=== PATIENT | female | born 1965 | race American Indian/Alaskan Native ===

== ENCOUNTER 2016-10-12 23:02 | Emergency (ER) | payer MEDICARE ==
[2016-10-13] MEDS ORDERED: TORADOL IM ONE (05:36)
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
[2016-10-13 05:43] VITALS: BP 155/80
[2016-10-13] MEDS ORDERED: MOTRIN PO ONE (05:53)
--- NOTE | 2016-10-13 09:21 | XRay Report ---
LEFT TIBIA AND FIBULA RADIOGRAPHS INDICATION: Status post fall. COMPARISON: None similar. FINDINGS: AP and lateral views demonstrate intact left tibia, fibula and intact adjacent included knee and ankle articulations. Mild superior and inferior patellar articular pole spurring. Superior patellar enthesophyte. Minimal suprapatellar effusion not entirely excluded. Mild diffuse ankle soft tissue swelling also possible. CONCLUSION: No acute left tibia or fibula radiographic abnormality with mild left knee degenerative changes and possible ankle soft tissue swelling, as described. Please correlate. Thank you for the opportunity to participate in this patient's care.
== END 2016-10-13 06:11 | disposition home or self-care (01) ==
LOC: ED 23:02
DX: M79.662 Pain in left lower leg (principal); I10 Essential (primary) hypertension; E78.00 Pure hypercholesterolemia, unspecified; F17.200 Nicotine dependence, unspecified, uncomplicated; G89.29 Other chronic pain
CPT/HCPCS: J1885

== ENCOUNTER 2017-05-30 00:51 | Emergency (ER) | payer MEDICARE ==
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
[2017-05-30 07:49] VITALS: BP 150/84
--- NOTE | 2017-05-30 16:13 | XRay Report ---
FINAL REPORT PROCEDURE: XR SPINE CERVICAL 2-3V TECHNIQUE: Cervical spine radiographs, AP, lateral, and open-mouth odontoid views. CPT 23862 HISTORY: neck pain COMPARISON: No prior studies are available for comparison. FINDINGS: Prevertebral soft tissues: Normal . Alignment: There is loss of cervical lordosis.. Vertebral body heights/Disk spaces: Mild to moderate narrowing of the intervertebral disc spaces is noted C4-5-C6-7 with mild degree marginal osteophyte formation posteriorly and moderate degree anterior osteophyte formation.. Fracture(s): None . Facets: Normal . Bone mineralization: Normal . IMPRESSION: Straightening of the cervical spine is most likely secondary to spasm or positioning. Cervical spondylosis as described above.
== END 2017-05-30 07:48 | disposition home or self-care (01) ==
LOC: ED 00:51
DX: M47.22 Other spondylosis with radiculopathy, cervical region (principal); I10 Essential (primary) hypertension; M62.838 Other muscle spasm; F17.200 Nicotine dependence, unspecified, uncomplicated; F32.9 Major depressive disorder, single episode, unspecified; F41.9 Anxiety disorder, unspecified; E78.00 Pure hypercholesterolemia, unspecified; Z90.710 Acquired absence of both cervix and uterus
CPT/HCPCS: 72040; 99283

== ENCOUNTER 2018-01-02 11:52 | Emergency (ER) | payer MEDICARE ==
[2018-01-02 11:57] VITALS: BP 131/80
[2018-01-02] MEDS ORDERED: DELTASONE PO ONE (12:15)
[2018-01-02] MEDS ORDERED: TORADOL IM ONE (12:15)
--- NOTE | 2018-01-02 12:34 | Emergency Department Report ---
ED Back Pain/Injury HPI - General Chief Complaint: Back Pain/Injury Stated Complaint: BACK AND LEFT SIDE PAIN Time Seen by Provider: 01/02/18 12:15 Source: patient Limitations: No Limitations - History of Present Illness Initial Comments: This is a 52-year-old female nontoxic, well nourished in appearance, no acute signs of distress presents to the ED with c/o of acute on chronic lower back pain. Patient stated that the past 2 days he was moving and developed this pain. Patient states has history of sciatica nerve pain which is similar symptoms as today. Patient states that pain radiates through to his left lower extremity. Patient denies any trauma. Denies any bladder or bowel instability. Patient denies any urinary symptoms. Denies any fever, chills, nausea, vomiting, headache, stiff neck, chest pain or shortness of breath. Patient denies any numbness or tingling. Denies any allergies. PMh includes HTN. MD Complaint: back pain -: days(s) (2) Similar Symptoms Previously: Yes Place: home Radiation: left leg Severity: mild Severity scale (0 -10): 8 Quality: aching Consistency: constant Improves With: immobilization, supine, sitting upright Worsens With: movement, walking Context: while lifting, turning/twisting Associated Symptoms: denies other symptoms. denies: confusion, weakness, chest pain, numbness, difficulty walking, cough, difficulty urinating, diaphoresis, incontinence, fever/chills, constipation, headaches, abdominal pain, loss of appetite, malaise, nausea/vomiting, rash, seizure, shortness of breath, syncope - Related Data Home Medications Medication Instructions Recorded Confirmed Last Taken Atenolol [Tenormin] 50 mg PO DAILY 02/24/13 02/24/13 02/24/13 50mg Ciprofloxacin HCl [Cipro] 500 mg PO BID 02/24/13 02/24/13 02/24/13 500mg Citalopram [Celexa] 20 mg PO QDAY 02/24/13 02/24/13 02/24/13 20mg Omeprazole [Prilosec] 20 mg PO QDAY 02/24/13 02/24/13 02/24/13 20mg Previous Rx's Medication Instructions Recorded Last Taken Type Ibuprofen [Motrin] 600 mg PO Q8H #14 tablet 02/25/13 Unknown Rx Cyclobenzaprine [Flexeril] 10 mg PO TID PRN #15 tablet 05/17/15 Unknown Rx traMADol [Ultram] 50 mg PO Q6HR PRN #15 tablet 05/17/15 Unknown Rx Ketorolac [Toradol] 10 mg PO Q6H PRN #20 tablet 10/13/16 Unknown Rx tiZANidine [Zanaflex] 4 mg PO TID 7 Days #30 tablet 05/30/17 Unknown Rx traMADol [Ultram 50 MG tab] 50 mg PO Q6HR PRN 7 Days #28 tablet 05/30/17 Unknown Rx Cyclobenzaprine [Flexeril] 10 mg PO BID PRN #14 tablet 01/02/18 Unknown Rx Ibuprofen [Motrin] 600 mg PO Q8H PRN #30 tablet 01/02/18 Unknown Rx Allergies Allergy/AdvReac Type Severity Reaction Status Date / Time No Known Allergies Allergy Unverified 02/24/13 19:32 ED Review of Systems ROS: Stated complaint: BACK AND LEFT SIDE PAIN Other details as noted in HPI Constitutional: denies: chills, fever Eyes: denies: eye pain, eye discharge, vision change ENT: denies: ear pain, throat pain Respiratory: denies: cough, shortness of breath, wheezing Cardiovascular: denies: chest pain, palpitations Endocrine: no symptoms reported Gastrointestinal: denies: abdominal pain, nausea, diarrhea Genitourinary: denies: urgency, dysuria, discharge Musculoskeletal: back pain. denies: joint swelling, arthralgia Skin: denies: rash, lesions Neurological: denies: headache, weakness, paresthesias Psychiatric: denies: anxiety, depression Hematological/Lymphatic: denies: easy bleeding, easy bruising ED Past Medical Hx - Past Medical History Hx Hypertension: Yes Hx Psychiatric Treatment: Yes (anxiety, depression) Additional medical history: Elevated Cholesterol, Chronic Back Pain - Surgical History Additional Surgical History: Hysterectomy - Social History Smoking Status: Current Every Day Smoker Substance Use Type: None - Medications Home Medications: Home Medications Medication Instructions Recorded Confirmed Last Taken Type Atenolol [Tenormin] 50 mg PO DAILY 02/24/13 02/24/13 02/24/13 History 50mg Ciprofloxacin HCl [Cipro] 500 mg PO BID 02/24/13 02/24/13 02/24/13 History 500mg Citalopram [Celexa] 20 mg PO QDAY 02/24/13 02/24/13 02/24/13 History 20mg Omeprazole [Prilosec] 20 mg PO QDAY 02/24/13 02/24/13 02/24/13 History 20mg Ibuprofen [Motrin] 600 mg PO Q8H #14 tablet 02/25/13 Unknown Rx Cyclobenzaprine [Flexeril] 10 mg PO TID PRN #15 tablet 05/17/15 Unknown Rx traMADol [Ultram] 50 mg PO Q6HR PRN #15 tablet 05/17/15 Unknown Rx Ketorolac [Toradol] 10 mg PO Q6H PRN #20 tablet 10/13/16 Unknown Rx tiZANidine [Zanaflex] 4 mg PO TID 7 Days #30 tablet 05/30/17 Unknown Rx traMADol [Ultram 50 MG tab] 50 mg PO Q6HR PRN 7 Days #28 tablet 05/30/17 Unknown Rx Cyclobenzaprine [Flexeril] 10 mg PO BID PRN #14 tablet 01/02/18 Unknown Rx Ibuprofen [Motrin] 600 mg PO Q8H PRN #30 tablet 01/02/18 Unknown Rx ED Physical Exam - General Limitations: No Limitations General appearance: alert, in no apparent distress - Head Head exam: Present: atraumatic, normocephalic - Eye Eye exam: Present: normal appearance Pupils: Present: normal accommodation - ENT ENT exam: Present: normal exam, mucous membranes moist - Neck Neck exam: Present: normal inspection, full ROM. Absent: tenderness, meningismus, lymphadenopathy - Respiratory Respiratory exam: Present: normal lung sounds bilaterally. Absent: respiratory distress, wheezes, rales, rhonchi, stridor, chest wall tenderness, accessory muscle use, decreased breath sounds, prolonged expiratory - Cardiovascular Cardiovascular Exam: Present: regular rate, normal rhythm, normal heart sounds. Absent: bradycardia, tachycardia, irregular rhythm, systolic murmur, diastolic murmur, rubs, gallop - GI/Abdominal GI/Abdominal exam: Present: soft, normal bowel sounds. Absent: distended, tenderness, guarding, rebound, rigid, diminished bowel sounds - Rectal Rectal exam: Present: deferred - Extremities Exam Extremities exam: Present: normal inspection, full ROM, normal capillary refill. Absent: tenderness - Back Exam Back exam: Present: normal inspection, full ROM, paraspinal tenderness ( paraspinal lumbar area). Absent: tenderness, CVA tenderness (R), CVA tenderness (L), muscle spasm, vertebral tenderness, rash noted - Expanded Back Exam Expanded Back exam: Absent: saddle anesthesia Back exam: Negative Straight Leg Raising: Left, Right - Neurological Exam Neurological exam: Present: alert, oriented X3, normal gait - Psychiatric Psychiatric exam: Present: normal affect, normal mood - Skin Skin exam: Present: warm, dry, intact, normal color. Absent: rash ED Course Vital Signs 01/02/18 11:54 Temperature 98.2 F Pulse Rate 87 Respiratory 18 Rate Blood Pressure 131/80 O2 Sat by Pulse 97 Oximetry - Reevaluation(s) Reevaluation #1: 01/02/18 12:36 Patient is speaking in full sentences with no signs of distress noted. ED Medical Decision Making - Medical Decision Making This is a 52-year-old female that presents with low back strain. Patient is stable was examined by me. There is no spinal tenderness. There is no cauda equina syndrome during examination. No bladder or bowel instability. Patient received Toradol 30 mg IM and prednisone in the ED which preceded his symptoms has resolved and subsided. Patient is discharged with muscle relaxant and Motrin. Patient was instructed not to operate any machinery while taking muscle relaxant as they cause her drowsiness. Patient was referred to Follow- up with a primary care doctor in 3-5 days or if symptoms worsen and continue return to emergency room as soon as possible. At time of discharge, the patient does not seem toxic or ill in appearance. No acute signs of distress noted. Patient agrees to discharge treatment plan of care. No further questions noted by the patient. This chart is dictated with using [employer] Critical care attestation.: If time is entered above; I have spent that time in minutes in the direct care of this critically ill patient, excluding procedure time. ED Disposition Clinical Impression: Low back strain Qualifiers: Encounter type: initial encounter Qualified Code(s): S39.012A - Strain of muscle, fascia and tendon of lower back, initial encounter Disposition: - TO HOME OR SELFCARE Is pt being admited?: No Does the pt Need Aspirin: No Condition: Stable Instructions: Low Back Strain (ED), Cyclobenzaprine (By mouth), Ibuprofen (By mouth) Additional Instructions: Follow-up with your primary care doctor in 3-5 days or if symptoms worsen such as bladder or bowel stability, chest pain, short of breath, numbness or tingling sensation in extremities, headache, dizziness, visual changes, nausea vomiting, or abdominal pain, return back to emergency room as was possible. Take ibuprofen and Flexeril as prescribed. Do not operate heavy machinery while taking Flexeril due to sedation Prescriptions: Cyclobenzaprine [Flexeril] 10 mg PO BID PRN #14 tablet PRN Reason: Muscle Spasm Ibuprofen [Motrin] 600 mg PO Q8H PRN #30 tablet PRN Reason: Pain Referrals: PRIMARY CARE, [Primary Care Provider] - 3-5 Days LETI ESCOBAR MD [Staff Physician] - 3-5 Days [facility] [Outside] - 3-5 Days [facility] [Outside] - 3-5 Days Forms: Work/School Release Form(ED)
== END 2018-01-02 12:49 | disposition home or self-care (01) ==
LOC: ED 11:52
DX: S39.012A Strain of muscle, fascia and tendon of lower back, initial encounter (principal); I10 Essential (primary) hypertension; E78.00 Pure hypercholesterolemia, unspecified; F32.9 Major depressive disorder, single episode, unspecified; F41.9 Anxiety disorder, unspecified; F17.200 Nicotine dependence, unspecified, uncomplicated; Z90.710 Acquired absence of both cervix and uterus; X58.XXXA Exposure to other specified factors, initial encounter; Y93.89 Activity, other specified; Y92.89 Other specified places as the place of occurrence of the external cause; Y99.8 Other external cause status
CPT/HCPCS: 96372; 99282; J1885; J7512

== ENCOUNTER 2021-10-12 01:55 | Emergency (ER) | payer MEDICARE ==
[2021-10-12] MEDS ORDERED: fentaNYL 100 MCG/2 ML INJ IV ONE (02:40)
[2021-10-12] MEDS ORDERED: ONDANSETRON 4 MG/2 ML INJ IV ONE (02:40)
[2021-10-12] MEDS ORDERED: KETOROLAC 30 MG/1 ML INJ IV ONE (02:41)
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
[2021-10-12 06:28] VITALS: BP 126/78
== END 2021-10-12 06:28 | disposition home or self-care (01) ==
LOC: ED 01:55
DX: S39.012A Strain of muscle, fascia and tendon of lower back, initial encounter (principal); I10 Essential (primary) hypertension; F41.9 Anxiety disorder, unspecified; F32.9 Major depressive disorder, single episode, unspecified; G89.29 Other chronic pain; F17.200 Nicotine dependence, unspecified, uncomplicated; Z90.710 Acquired absence of both cervix and uterus; V89.2XXA Person injured in unspecified motor-vehicle accident, traffic, initial encounter; Y93.89 Activity, other specified; Y92.488 Other paved roadways as the place of occurrence of the external cause; Y99.8 Other external cause status
CPT/HCPCS: 72100; 96374; 96375; 99284; J1885; J2405; J3010